=== PATIENT | female | born 1960 ===

== ENCOUNTER 2025-06-27 09:45 | Inpatient (IN) | payer OTHER ==
[~2025-06-27] VITALS: Ht 170.2 cm; Wt 68.0 kg
[2025-06-27 11:34] LABS: BASO % 0.8 % (0.1-1.2); EOS # 0.11 (0.04-0.54); EOS % 1.5 % (0.7-7.0); LYMPH # 1.54 (1.18-3.74); LYMPH % 21.4 % (19.3-53.1); MEAN PLATELET VOLUME 8.90 fl (9.4-12.4); MONO # 0.39 (0.24-0.82); MONO % 5.4 % (4.7-12.5); NEUT # 5.08 (1.56-6.13); NEUT % 70.8 % (34.0-71.1); RED CELL DISTRIBUTION WIDTH 12.9 % (11.6-14.4)
[2025-06-27 11:36] LABS: URINE APPEARANCE Clear; URINE BILIRRUBIN Negative (NEGATIVE); URINE BLOOD Small; URINE COLOR Yellow; URINE GLUCOSE Negative (NEGATIVE); URINE KETONE Negative (NEGATIVE); URINE LEUKOCYTE Negative; URINE NITRATE Negative; URINE PROTEIN Negative (NEGATIVE); URINE UROBILINOGEN 0.2 E.U./dl
[2025-06-27 11:40] LABS: URINE BACTERIA 196.8 uL (0.0-1933); URINE EPITHELIAL CELLS 9.6 uL (0.0-38.8); URINE RBC 18.1 uL (0.0-20.8); URINE WBC 2.3 uL (0.0-23.2)
[2025-06-27 11:45] LABS: URINE CAST 0.14 uL (0.0-1.40)
[2025-06-27 11:54] LABS: INR 0.95
[2025-06-27 12:09] LABS: ALT/SGPT 24.0 U/L (12-78); AST/SGOT 20.0 U/L (15-37); BILIRUBIN TOTAL 0.29 mg/dL (0.3-1.2); BUN CREA RATIO 25.0 (7.0-25.0); CREATININE SERUM 0.61 mg/dL (0.55-1.02); GFR 98.13; GLOBULINA 3.3 G/DL (2.4-3.5); GLUCOSE FASTING 91.0 mg/dL (65-100); OSMOLALITY SERUM 287.0 MOSM/KG (275-295)
[2025-06-27] MEDS ORDERED: ENDOMETRIN100 MG (13:25)
[2025-06-27] MEDS ORDERED: VASOTEC5 MG PO (13:25)
[2025-06-27] MEDS ORDERED: YUVAFEM10 MCG (13:26)
[2025-06-27] MEDS ORDERED: EZALLOR SPRINKL20 MG PO (13:26)
[2025-06-27] MEDS ORDERED: SYNTHROID125 MCG PO (13:26)
[2025-06-27 13:35] VITALS: BP 119/68
[2025-07-05] MEDS ORDERED: CLONAZEPAM1 MG (14:17)
[2025-07-05] MEDS ORDERED: OMEGA-3 ACID ETH1 GM (14:18)
[2025-07-05] MEDS ORDERED: METRONIDAZOLE/SODIUM CHLORIDE 500 MG/100 ML PIGGYBACK IV SCH (14:26)
[2025-07-05] MEDS ORDERED: MORPHINE SULFATE 4 MG/ML CARTRIDGE IV PRN (14:30)
[2025-07-05] MEDS ORDERED: ONDANSETRON HCL 2 MG/ML VIAL ONE (15:22)
[2025-07-05] MEDS ORDERED: MORPHINE SULFATE 4 MG/ML VIAL IV ONE (15:30)
[2025-07-05] MEDS ORDERED: ENOXAPARIN SODIUM 40 MG/0.4 ML SYRINGE SUBCUTANEO SCH (17:00)
[2025-07-05] MEDS ORDERED: ACETAMINOPHEN 500 MG GEL..CAP PO SCH (18:00)
[2025-07-05 20:40] VITALS: BP 106/68; O2SAT 95
[2025-07-05] MEDS ORDERED: ENALAPRILAT DIHYDRATE 2.5 MG/2 ML VIAL IV PRN (22:00)
[2025-07-05] MEDS ORDERED: ONDANSETRON HCL 2 MG/ML VIAL IV ONE (23:00)
[2025-07-06] MEDS ORDERED: CHLORHEXIDINE GLUCONATE 120 ML BOTTLE TOP ONE (01:15)
[2025-07-06] MEDS ORDERED: CEFAZOLIN SODIUM 1,000 MG VIAL IV ONE (01:15)
[2025-07-06 02:28] VITALS: BP 101/56; O2SAT 98
[2025-07-06] MEDS ORDERED: LEVOTHYROXINE SODIUM 125 MCG TABLET PO SCH (06:00)
[2025-07-06] MEDS ORDERED: ACETAMINOPHEN 500 MG GEL..CAP PO ONE (07:07)
[2025-07-06] MEDS ORDERED: CEFTRIAXONE SODIUM 2,000 MG VIAL ONE (07:07)
[2025-07-06] MEDS ORDERED: METRONIDAZOLE/SODIUM CHLORIDE 500 MG/100 ML PIGGYBACK IV ONE (07:07)
[2025-07-06 08:29] VITALS: BP 96/60; O2SAT 96
[2025-07-06] MEDS ORDERED: ROSUVASTATIN CALCIUM 20 MG TABLET PO SCH (09:00)
[2025-07-06] MEDS ORDERED: CEFTRIAXONE SODIUM 2,000 MG VIAL IV SCH (09:00)
[2025-07-06] MEDS ORDERED: ENALAPRIL MALEATE 5 MG TABLET PO SCH (09:00)
[2025-07-06 16:32] VITALS: BP 109/67; O2SAT 95
== END 2025-07-06 20:50 | disposition home or self-care (01) | DRG 331 ==
LOC: O/R 07-05 09:00 → SURH 07-05 09:00 → SURG 07-05 09:15 → SURH 07-05 16:41
PROVIDERS: ADMIT Surgery; ATTEND Surgery
PROC: 0DTF4ZZ Resection of Right Large Intestine, Percutaneous Endoscopic Approach (ICD-10-PCS; principal; 2025-07-06)
DX: D12.2 Benign neoplasm of ascending colon (principal); K03.9 Disease of hard tissues of teeth, unspecified; E78.5 Hyperlipidemia, unspecified; I10 Essential (primary) hypertension